=== PATIENT | female | born 1975 | race Caucasian/White ===

== ENCOUNTER 2017-02-06 09:33 | Day surgery (SDC) | payer BC ==
[~2017-02-06 09:33] MED LIST: Metoclopramide 10 MG/2 ML SDV IV PRN; Sodium Chloride 0.9% 1,000 ML IV SCH; Sodium Chloride 0.9% 10 ML Syringe FLUSH PRN
[2017-02-06] MEDS ORDERED: Propofol 200 MG/20 ML SDV ONE (11:15)
[2017-02-06 11:49] VITALS: BP 100/62
--- NOTE | 2017-02-06 17:46 | OR ---
DATE OF OPERATION: 02/06/2017 PREOPERATIVE DIAGNOSES: 1. Chronic diarrhea. 2. Abdominal pain. POSTOPERATIVE DIAGNOSIS: Normal colonoscopy. OPERATION: Colonoscopy with biopsies. COMPLICATIONS: None. DRAINS: None. SPECIMENS: 1. Terminal ileal biopsy. 2. Rectal biopsy. ESTIMATED BLOOD LOSS: Minimal. ANESTHESIA: General propofol anesthesia. INDICATION: Ms. Zelaya is a 41-year-old female who has been having some chronic abdominal pain mostly in her left lower quadrant with associated chronic diarrhea, which has been ongoing for approximately a year. The above-mentioned procedure was explained. The risks, benefits, and complications were explained. The patient understood and agreed and she was brought to the operating room. DESCRIPTION OF PROCEDURE: The patient was brought to the operating room and placed in left lateral decubitus position on the operating room table. Satisfactory general propofol anesthesia was administered. We began by performing a rectal examination, which was within normal limits. We then introduced the endoscope by finger introduction into the rectum and subsequently advanced this to the level of the cecum. The cecum was identified by the appendiceal orifice, the cecal strap and ileocecal valve. Careful evaluation of the cecum revealed no significant findings. The mucosa was normal. I then intubated the terminal ileum and this also appeared normal. Random biopsies of the terminal ileum were taken. Next, we evaluated the colon on withdrawal. The colon showed no polyps, no neoplastic growths, no diverticula or telangiectasias. The remainder of the colonic mucosa appeared within normal limits. Retroflexion was performed in the rectum, which revealed no significant findings. Random rectal biopsies were also taken as well. Next, the colon was decompressed and the endoscope was withdrawn. The patient tolerated the procedure well. There were no complications. Instrument count was correct. The patient was awoken in the OR and taken to the PACU for recovery. YONI/JONATHAN /[id number]
== END 2017-02-06 12:48 | disposition home or self-care (01) ==
LOC: LB.SDS 09:33
PROVIDERS: ATTEND Surgery
DX: K62.89 Other specified diseases of anus and rectum (principal); I10 Essential (primary) hypertension; Z88.2 Allergy status to sulfonamides; Z88.8 Allergy status to other drugs, medicaments and biological substances; Z79.899 Other long term (current) drug therapy; Z91.040 Latex allergy status
CPT/HCPCS: 45380; 88305; J2704; J7040; J7050